=== PATIENT | male | born 1950 | race Caucasian/White ===

== ENCOUNTER → 2017-07-24 | Outpatient (CLI) | payer OTHER ==
[~2017-07-24] MED LIST: ASPIR 8181 MG PO; ATORVASTATIN CA40 MG PO; AUGMENTIN 875875 MG PO; FLEXERIL PO; FLONASE 0.05%50 MCG NASAL; LOSARTAN POTAS100 MG PO; MOBIC7.5 MG PO; NORCO 10-325 T1 EACH PO; NORFLEX100 MG PO; PANTOPRAZOLE SO40 M1 PO; PLAVIX 75 MG TA75 M1 PO; PROTONIX40 M1 PO; TENORMIN25 MG PO; TOPROL XL25 MG PO
== END ==
LOC: PET 07:10
DX: R91.8 Other nonspecific abnormal finding of lung field (principal)

== ENCOUNTER → 2017-07-28 | Outpatient (CLI) | payer OTHER | LOC: MRI 06:16 | DX: R91.8 Other nonspecific abnormal finding of lung field (principal); I67.82 Cerebral ischemia ==